=== PATIENT | female | born 1980 | race Caucasian/White ===

== ENCOUNTER 2017-10-16 08:10 | Emergency (ER) | payer OTHER ==
[~2017-10-16] VITALS: Ht 170.2 cm; Wt 117.9 kg
[2017-10-16] MEDS ORDERED: BUPRENORPHINE1 EAC3 TD (08:53)
[2017-10-16] MEDS ORDERED: POTCHL10ER PO (08:54)
[2017-10-16] MEDS ORDERED: FURO20 PO (08:54)
[2017-10-16] MEDS ORDERED: Azithromycin500 MG PO (09:18)
[2017-10-16] MEDS ORDERED: Benadryl A12.5 MG/5 PO (09:18)
== END 2017-10-16 09:59 | disposition home or self-care (01) ==
LOC: ER 08:10
DX: K12.2 Cellulitis and abscess of mouth (principal); Z88.0 Allergy status to penicillin; Z79.899 Other long term (current) drug therapy; F17.200 Nicotine dependence, unspecified, uncomplicated
CPT/HCPCS: 99283

== ENCOUNTER 2017-11-16 09:27 | Emergency (ER) | payer OTHER ==
[~2017-11-16] VITALS: Ht 172.7 cm; Wt 115.7 kg
[~2017-11-16 09:27] MED LIST: Azithromycin500 MG PO; BUPRENORPHINE1 EAC3 TD; Benadryl A12.5 MG/5 PO; FURO20 PO; POTCHL10ER PO
[2017-11-16] MEDS ORDERED: GABA800 PO (10:07)
[2017-11-16] MEDS ORDERED: BUPRENORPHINE HC8 MG SL (10:08)
[2017-11-16] MEDS ORDERED: IBUP800 PO (10:09)
[2017-11-16] MEDS ORDERED: MINO100 PO (10:41)
[2017-11-16] MEDS ORDERED: IBUP400 PO (10:41)
== END 2017-11-16 11:09 | disposition home or self-care (01) ==
LOC: ER 09:27
DX: L02.412 Cutaneous abscess of left axilla (principal); L02.422 Furuncle of left axilla; F17.210 Nicotine dependence, cigarettes, uncomplicated; Z79.899 Other long term (current) drug therapy; Z88.0 Allergy status to penicillin
CPT/HCPCS: 99283